=== PATIENT | male | born 1980 | race Caucasian/White ===

== ENCOUNTER 2020-04-29 14:29 | Emergency (ER) | payer SELFPAY | END 2020-04-29 15:14 | disposition home or self-care (01) | LOC: BURERS 14:29 | DX: M62.830 Muscle spasm of back (principal); F32.9 Major depressive disorder, single episode, unspecified; F17.210 Nicotine dependence, cigarettes, uncomplicated | CPT/HCPCS: 99283 ==

== ENCOUNTER 2021-06-29 09:39 | Emergency (ER) | payer SELFPAY | END 2021-06-29 10:28 | disposition home or self-care (01) | LOC: BURERS 09:39 | DX: S61.250A Open bite of right index finger without damage to nail, initial encounter (principal); L03.011 Cellulitis of right finger; F17.210 Nicotine dependence, cigarettes, uncomplicated; W55.01XA Bitten by cat, initial encounter ==

== ENCOUNTER 2022-07-10 19:33 | Emergency (ER) | payer OTHER, SELFPAY | END 2022-07-10 20:49 | disposition home or self-care (01) | LOC: BURERS 19:33 | DX: M79.671 Pain in right foot (principal); F17.210 Nicotine dependence, cigarettes, uncomplicated; W20.8XXA Other cause of strike by thrown, projected or falling object, initial encounter; Y99.0 Civilian activity done for income or pay ==